=== PATIENT | male | born 1955 | race Caucasian/White ===

== ENCOUNTER 2023-09-16 09:36 | Outpatient (AMB) | payer MEDICARE, SELFPAY ==
--- NOTE | 2023-09-16 10:21 | MHC.OFFWIV ---
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 He states it has been going on for about 2 weeks. The pain was initially on the top of his foot but then moved to the medial and plantar surface. There is swelling of the MTP joint. He had similar occurrence about a year ago and was told it was gout. He is requesting some more definitive diagnosis with perhaps a uric acid level. Patient has not been taking any form of pain medication for this as of yet. PFSH Social History Patient Tobacco Use Status: Never used Tobacco Physical Exam Vital Signs: Last Vital Signs Temp 98.0 F 09/16/23 10:23 Pulse 67 09/16/23 10:23 BP 130/72 09/16/23 10:23 Pulse Ox 97 09/16/23 10:23 Oxygen Delivery Method Room Air 09/16/23 10:23 BMI result Body Mass Index 24.0 Const General: healthy appearing and no acute distress Orientation/consciousness: patient oriented x3 Eyes Corneas: corneas normal Pupils: Equal, round and reactive pupils present Resp Effort & Inspection: normal respiratory effort and able to speak in complete sentences Neuro General: patient oriented x3 Cranial nerves: Yes Equal, round and reactive pupils present Extrem Other: Right foot: 1st MTP joint with some swelling and mild erythema. Tender to palpation to the MTP joint and more noted medial and plantar surface. Psych Appearance: grossly normal Attitude: cooperative Assessment & Plan Assessment & Plan (1) Gouty arthritis: Code(s): M10.9 - Gout, unspecified Plan Symptoms suggestive of gout, or other form of arthritis. Will send for x-ray and uric acid level patient comfortable with this plan. Will recommend treatment with indomethacin Orders: Orders Uric Acid Today M19.90 - Unspecified osteoarthritis, unspecified site XR toe RT min 2V Today M10.9 - Gout, unspecified Medications: New indomethacin administer with food or milk 50 mg PO BID 14 caps 0RF Coding Level of Care Code Est Pt Level 3 (91106) Diagnoses Gouty arthritis M10.9
[2023-09-16 10:23] VITALS: BP 130/72; PULSE 67; TEMP 36.7; O2SAT 97; BMI 24.0
== END 2023-09-16 10:59 | disposition home or self-care (01) ==
PROVIDERS: Visit Provider Emergency Medicine
DX: M10.9 Gout, unspecified (principal)
CPT/HCPCS: 99213

== ENCOUNTER 2023-09-16 10:40 | Outpatient (REF) | payer MEDICARE, SELFPAY ==
--- NOTE | ~2023-09-16 | XR_ITS ---
EXAMINATION: XR TOES, RIGHT CLINICAL INFORMATION: Gout COMPARISON: None available. TECHNIQUE: Single view right foot with 2 additional views of the right first toe were obtained. FINDINGS: Degenerative changes are seen at the first MTP joint. There is a large lateral osteophyte arising from the base of the proximal phalanx in the first toe. No fractures are seen. Tiny periarticular erosion is present at the head of the first metatarsal medially. No fractures or dislocations. XR/XR toe RT min 2V IMPRESSION: Degenerative changes at the first MTP joint with large lateral osteophyte arising from the base of the proximal phalanx.
[2023-09-16 13:48] LABS: Uric Acid 10.7 mg/dL (3.4-7.0)
== END 2023-09-16 10:41 | disposition home or self-care (01) ==
LOC: HO.HMGCX 10:40
PROVIDERS: Visit Provider Emergency Medicine
DX: M10.9 Gout, unspecified (principal); M19.90 Unspecified osteoarthritis, unspecified site
CPT/HCPCS: 36415; 73660; 84550